=== PATIENT | male | born 1960 | race Caucasian/White ===

== ENCOUNTER → 2017-10-08 | Day surgery (SDC) | payer OTHER ==
[~2017-10-08] MED LIST: ASPIR 8181 MG PO; ASPIRIN325 MG PO; EPHEDRINE SULFATE INJ 50 MG/10 ML SYR ONE; FELODIPINE ER5 MG PO; FENTANYL CITRATE/PF 100MCG/2 ML INJ ONE; FOLIC ACID0.4 MG PO; FUROSEMIDE40 MG PO; GLIMEPIRIDE2 MG PO; GLYCOPYRROLATE INJ 1MG/ 5 ML SYR ONE; LIDOCAINE HCL 2% LOCAL INJ 5 ML SDV VIAL INJ ONE; MIDAZOLAM HCL 2 MG/2 ML VIAL ONE; PROPOFOL IV EMULSION 10 MG/ML 50 ML VIAL ONE
--- NOTE | 2017-10-08 13:15 | Operative Report ---
DATE OF PROCEDURE: October 08, 2017 REFERRING PHYSICIAN: Real Xiao MD PROCEDURE PERFORMED: Colonoscopy and polypectomy. INDICATIONS FOR COLONOSCOPY: Colorectal cancer screening. Personal history of colon polyps. History of nodular ileocecal valve. MEDICATION: Patient was done under MAC. Please see anesthesiologist's note. PROCEDURE: With the patient in the left lateral decubitus position, the flexible fiberoptic Olympus colonoscope was inserted into the rectum with ease and advanced all the way to the cecum. The cecum appeared to be within normal limits. The previously described nodularity in the ileocecal valve appears to have resolved. Most likely, it was inflammatory in nature. Three polyps were snared from the ascending colon. The transverse appeared to be within normal limits as well as the descending colon. Some diverticular disease was noted in the sigmoid colon. Two polyps were hot biopsied and 2 polyps were snared from the sigmoid. The rectum appeared to be within normal limits. The scope was then retroflexed into the distal rectum, and small internal hemorrhoids were noted, none of which was actively bleeding. The scope was then straightened out. The rectosigmoid area as well as the distal rectal area were decompressed. Scope was subsequently withdrawn. Patient tolerated the procedure well. IMPRESSION 1. Nodularity noted previously on ileocecal valve resolved. 2. Ascending colon polyps times 3, snared. 3. Diverticulosis. 4. Sigmoid colon polyps times 4, two snared and two hot biopsied. 5. Internal hemorrhoids, none actively bleeding. PLAN: Follow up histology. Initiate high-fiber, low-fat diet. Initiate high-fiber supplement. Patient will need a followup colonoscopy in 3 years. Job#: [id number] cc:REAL XIAO MD
== END | disposition home or self-care (01) ==
LOC: OR 10:10
PROVIDERS: ATTEND Internal Medicine Gastroenterology
DX: Z12.11 Encounter for screening for malignant neoplasm of colon (principal); D12.2 Benign neoplasm of ascending colon; D12.5 Benign neoplasm of sigmoid colon; K57.30 Diverticulosis of large intestine without perforation or abscess without bleeding; K64.8 Other hemorrhoids; I10 Essential (primary) hypertension; E11.9 Type 2 diabetes mellitus without complications; E66.9 Obesity, unspecified; F32.9 Major depressive disorder, single episode, unspecified; F17.220 Nicotine dependence, chewing tobacco, uncomplicated; Z01.810 Encounter for preprocedural cardiovascular examination; Z79.82 Long term (current) use of aspirin
CPT/HCPCS: 36415; 45384; 45385; 82948; 93005; J2001; J2250